=== PATIENT | female | born 2000 | race Caucasian/White ===

== ENCOUNTER 2019-04-24 15:31 | Emergency (ER) | payer OTHER ==
[2019-04-24] MEDS ORDERED: Morphine 2 MG/ML Syringe IVPUSH ONE ×3 (15:52→16:56)
[2019-04-24] MEDS ORDERED: Ondansetron 4 MG/2 ML SDV IVPUSH ONE (15:53)
--- NOTE | 2019-04-24 15:54 | EDM.PDOC ---
ED HPI GENERAL MEDICAL PROBLEM - General Chief Complaint: Lower Extremity Injury/Pain Stated Complaint: BROKE HER LEG Time Seen by Provider: 04/24/19 15:39 Source of Information: Reports: Patient History Limitations: Reports: No Limitations - History of Present Illness INITIAL COMMENTS - FREE TEXT/NARRATIVE: 18 yo female presents with trauma to right lower leg after being kicked by her horse. she was dismounting horse when the horse kicked her in the right lower leg. generally healthy no other injuries Left Lower Leg Pain Score (Numeric/FACES): 7 - Related Data Allergies Allergy/AdvReac Type Severity Reaction Status Date / Time No Known Allergies Allergy Verified 04/24/19 15:40 Home Meds: Home Meds Norgestimate-Ethinyl Estradiol [[id number] Tablet] 1 each PO DAILY 04/24/19 [ History] Past Medical History - Past Health History Medical/Surgical History: Denies Medical/Surgical History Social & Family History - Tobacco Use Smoking Status *Q: Never Smoker - Caffeine Use Caffeine Use: Reports: Coffee, Energy Drinks, Soda - Recreational Drug Use Recreational Drug Use: No Review of Systems - Review of Systems Review Of Systems: See Below Constitutional: Denies: Chills, Fever Respiratory: Denies: Shortness of Breath, Wheezing Cardiovascular: Denies: Chest Pain ED EXAM, GENERAL - Physical Exam Exam: See Below Exam Limited By: No Limitations General Appearance: Alert, WD/WN, No Apparent Distress Head: Atraumatic, Normocephalic Neck: Normal Inspection, Supple, Non-Tender, Full Range of Motion. No: Lymphadenopathy (R), Lymphadenopathy (L) Respiratory/Chest: No Respiratory Distress, Lungs Clear. No: Crackles, Rhonchi , Wheezing Cardiovascular: Normal Peripheral Pulses, Regular Rate, Rhythm, No Murmur Extremities: Leg Pain (deformity, CMS distil injury intact) Course - Vital Signs Last Recorded V/S: Last Vital Signs Temp 36.2 C 04/24/19 15:38 Pulse 80 04/24/19 15:38 Resp 22 H 04/24/19 15:38 BP 126/81 04/24/19 15:38 Pulse Ox 100 04/24/19 15:38 - Orders/Labs/Meds Meds: Medications Discontinued Medications Generic Name Dose Route Start Last Admin Trade Name Freq PRN Reason Stop Dose Admin Morphine Sulfate 1 mg 04/24/19 15:52 04/24/19 16:04 Morphine IVPUSH 04/24/19 15:53 1 mg ONETIME ONE Administration Morphine Sulfate 1 mg 04/24/19 16:25 04/24/19 16:35 Morphine IVPUSH 04/24/19 16:26 1 mg ONETIME ONE Administration Morphine Sulfate 1 mg 04/24/19 16:56 04/24/19 17:07 Morphine IVPUSH 04/24/19 16:57 1 mg ONETIME ONE Administration Ondansetron HCl 4 mg 04/24/19 15:53 04/24/19 16:04 Zofran IVPUSH 04/24/19 15:54 4 mg ONETIME ONE Administration - Re-Assessments/Exams Free Text/Narrative Re-Assessment/Exam: 04/24/19 17:21 Javier contacted from [facility] accepted pt. pt has been NPO since 0800 this AM. long splint applied to right leg Departure - Departure Time of Disposition: 17:22 Disposition: DC/Tfer to Acute Hospital 02 Condition: Good Clinical Impression: Closed fracture of tibia AND fibula - Discharge Information *PRESCRIPTION DRUG MONITORING PROGRAM REVIEWED*: Not Applicable *COPY OF PRESCRIPTION DRUG MONITORING REPORT IN PATIENT ZULEIKA: Not Applicable Referrals: PCP,None [Ordering Only Provider] - Forms: ED Department Discharge
--- NOTE | 2019-04-24 16:32 | CRLCR ---
INDICATION: Trauma COMPARISON: none TECHNIQUE: Two views of the right lower leg were obtained FINDINGS: Mid-diaphyseal tibial and fibular fractures are identified. The knee is intact. The ankle is intact. No other fractures are identified. IMPRESSION: Comminuted mid diaphyseal tibial and fibular fractures Dictated by Anusha Garcia MD @ Apr 24 2019 4:29PM Signed by Dr. Anusha Garcia @ Apr 24 2019 4:30PM
== END 2019-04-24 18:37 ==
LOC: JP.ED 15:31
DX: S82.251A Displaced comminuted fracture of shaft of right tibia, initial encounter for closed fracture (principal); S82.451A Displaced comminuted fracture of shaft of right fibula, initial encounter for closed fracture; W55.12XA Struck by horse, initial encounter
CPT/HCPCS: 29505; 73590; 96374; 96375; 96376; 99284; J2270; J2405